=== PATIENT | male | born 1950 | race Caucasian/White ===

== ENCOUNTER 2016-07-01 05:10 | Observation (INO) | payer MEDICARE ==
[~2016-07-01] VITALS: Ht 193 cm; Wt 65.7 kg
[2016-07-01] MEDS ORDERED: TIOT18CA INH (05:23)
[2016-07-01] MEDS ORDERED: OMEP20TA62 PO (05:23)
[2016-07-01] MEDS ORDERED: SODIUM CHLORIDE 0.9% 1,000 ML IV ONE (05:28)
[2016-07-01] MEDS ORDERED: SODIUM CHLORIDE FLUSH 10ML SYR IVF ONE (05:30)
[2016-07-01 06:16] LABS: BLOOD UREA NITROGEN 8 mg/dL (7-18)
[2016-07-01 06:24] LABS: ASPARTATE AMINO TRANSFERASE 13 U/L (15-37)
[2016-07-01 06:25] LABS: IS PT STATUS REG ER OR PRE ER? YES
[2016-07-01] MEDS ORDERED: LORazepam 2 MG/ML, 1ML IVPush ONE (07:00)
[2016-07-01] MEDS ORDERED: NICOTINE 21 MG/24 HR PATCH.TD24 TD ONE (07:00)
[2016-07-01] MEDS ORDERED: ENOXAPARIN 40 MG/0.4 ML ONE (07:55)
[2016-07-01] MEDS ORDERED: NICOTINE 21 MG/24 HR PATCH.TD24 ONE (07:55)
[2016-07-01] MEDS ORDERED: LORazepam 2 MG/ML, 1ML ONE (07:55)
[2016-07-01] MEDS: ENOXAPARIN 40 MG/0.4 ML SQ SCH (07:58)
[2016-07-01] MEDS: NICOTINE 14MG/24 HR PATCH.TD24 TD SCH (07:59)
[2016-07-01] MEDS ORDERED: ONDANSETRON 2MG/ML, 2ML IVP PRN (08:00)
[2016-07-01] MEDS ORDERED: POLYETHYLENE GLYCOL 17 GM PACKET PO PRN (08:00)
[2016-07-01] MEDS ORDERED: ONDANSETRON ODT 4 MG PO PRN (08:00)
[2016-07-01] MEDS ORDERED: GUAIFENESIN/DM 200-20MG, 10ML UDC PO PRN ×2 (08:00)
[2016-07-01] MEDS ORDERED: NITROGLYCERIN 0.4 MG BOTTLE (25 TABS) SL PRN (08:00)
[2016-07-01] MEDS ORDERED: ZOLPIDEM 5MG TABLET PO PRN (08:00)
[2016-07-01] MEDS ORDERED: ALBUTEROL SULFATE 2.5 MG/3 ML NPPB PRN (08:00)
[2016-07-01] MEDS ORDERED: ACETAMINOPHEN 325 MG TABLET PO PRN (08:00)
[2016-07-01] MEDS ORDERED: DOCUSATE 100 MG CAPSULE PO PRN (08:00)
[2016-07-01] MEDS ORDERED: NITROGLYCERIN 0.4 MG/SPRAY SL PRN (08:00)
[2016-07-01] MEDS ORDERED: HYDROcodone/APAP 5/325 TABLET PO PRN (08:00)
[2016-07-01 08:30] LABS: IS PT STATUS REG ER OR PRE ER? YES
[2016-07-01 08:52] VITALS: BP 117/75
[2016-07-01] MEDS: SODIUM CHLORIDE 0.9% 1,000 ML IV SCH ×3 (09:37→22:03)
[2016-07-01 11:41] VITALS: BP 117/75
[2016-07-01 13:40] VITALS: BP_SYST 117; BP_SYST 94; BP_DIAS 52; BP_DIAS 70
[2016-07-01 13:55] LABS: IS PT STATUS REG ER OR PRE ER? NO
[2016-07-01 18:31] VITALS: BP 121/68
[2016-07-01 18:56] VITALS: BP 133/73
[2016-07-02 02:15] VITALS: BP 129/65
[2016-07-02] MEDS: IPRATROPIUM 0.5 MG/2.5 ML INHA HHN SCH ×2 (03:00→08:00)
[2016-07-02] MEDS ORDERED: ASPIRIN 325 MG TABLET EC PO SCH (06:00)
[2016-07-02 06:38] LABS: BLOOD UREA NITROGEN 11 mg/dL (7-18)
[2016-07-02 07:34] VITALS: BP 125/78
[2016-07-02] MEDS ORDERED: REGADENOSON 0.4 MG/5 ML SYRINGE ONE (09:11)
[2016-07-02] MEDS: NICOTINE 14MG/24 HR PATCH.TD24 TD SCH (10:44)
[2016-07-02] MEDS: ENOXAPARIN 40 MG/0.4 ML SQ SCH (10:44)
[2016-07-02] MEDS ORDERED: ALBUTEROL/IPRATROPIUM 2.5MG/0.5MG, 3 ML NPPB PRN (11:30)
[2016-07-02] MEDS ORDERED: ASPI-650 PO (13:40)
[2016-07-02] MEDS ORDERED: NICO1PAT4 TD (13:40)
[2016-07-02 13:59] VITALS: BP 107/62
== END 2016-07-02 16:52 | disposition home or self-care (01) ==
LOC: ED 06:48 → UNDOADMOB 06:49 → INTOOBSV 06:49 → EDIP 06:49 → ED 07:13 → EDIP 07:34 → 4WST 08:39 → 5SO 18:41
PROVIDERS: ADMIT Internal Medicine; ATTEND Internal Medicine
DX: R07.9 Chest pain, unspecified (principal); F17.200 Nicotine dependence, unspecified, uncomplicated; J44.9 Chronic obstructive pulmonary disease, unspecified; K21.9 Gastro-esophageal reflux disease without esophagitis
CPT/HCPCS: 36415; 71010; 78452; 80048; 80053; 80061; 83880; 84484; 85025; 85610; 93005; 93017; 96361; 96372; 96374; 99285; A9502; C9898; G0378; J1650; J2060; J2785; J7030; J7644

== ENCOUNTER → 2020-03-02 | Outpatient (CLI) | payer MEDICARE ==
[~2020-03-02] MED LIST: ASPI-650 PO; NICO-486 TD; OMEP20TA62 PO; OMNIPAQUE 350 MG/ML, 100ML BOTTLE ONE; TIOT18CA INH
[2020-03-02 13:43] LABS: CREATININE 0.79 mg/dL (0.7-1.3)
== END | disposition home or self-care (01) ==
LOC: RAD 13:04
PROVIDERS: ATTEND Family Medicine
DX: R22.1 Localized swelling, mass and lump, neck (principal); M50.322 Other cervical disc degeneration at C5-C6 level; I70.0 Atherosclerosis of aorta; J43.9 Emphysema, unspecified
CPT/HCPCS: 36415; 70491; 82565; Q9967

== ENCOUNTER → 2020-05-12 | Outpatient (CLI) | payer MEDICARE ==
[~2020-05-12] MED LIST changes: -ASPI-650 PO; +ASPI325T20 PO; -OMNIPAQUE 350 MG/ML, 100ML BOTTLE ONE
== END | disposition home or self-care (01) ==
LOC: ROC 06:59
PROVIDERS: ATTEND Radiology Radiation Oncology
DX: C10.9 Malignant neoplasm of oropharynx, unspecified (principal); Z79.82 Long term (current) use of aspirin; Z87.891 Personal history of nicotine dependence
CPT/HCPCS: 99214; G0463

== ENCOUNTER → 2020-05-20 | Outpatient (CLI) | payer MEDICARE ==
[~2020-05-20] MED LIST changes: +ALBU90AE INH; +BUDE10.2 PO; +CHOL500045 PO; +FINA5TAB4 PO; +ROFL500T PO; +SILO8CAP6 PO; +ZINC50CA PO
== END | disposition home or self-care (01) ==
LOC: STAR 10:07
PROVIDERS: ATTEND Specialist
DX: Z20.822 Contact with and (suspected) exposure to COVID-19 (principal); C77.9 Secondary and unspecified malignant neoplasm of lymph node, unspecified; J44.9 Chronic obstructive pulmonary disease, unspecified; R49.0 Dysphonia; F17.210 Nicotine dependence, cigarettes, uncomplicated
CPT/HCPCS: U0003

== ENCOUNTER 2020-06-18 07:17 | Outpatient (CLI) | payer MEDICARE | END 2020-06-18 23:59 | disposition home or self-care (01) | LOC: ROC 07:17 | PROVIDERS: ATTEND Radiology Radiation Oncology | DX: C32.1 Malignant neoplasm of supraglottis (principal); C77.0 Secondary and unspecified malignant neoplasm of lymph nodes of head, face and neck; J44.9 Chronic obstructive pulmonary disease, unspecified; Z79.899 Other long term (current) drug therapy; Z79.82 Long term (current) use of aspirin; Z87.891 Personal history of nicotine dependence | CPT/HCPCS: 99213; G0463 ==

== ENCOUNTER → 2020-06-18 | Outpatient (CLI) | payer MEDICARE ==
[~2020-06-18] MED LIST changes: +ACET-1600 PO; +HYDR-3241 PO
[2020-06-18 12:41] LABS: BASOPHILS % (AUTO) 1 % (0-1); EOSINOPHILS % (AUTO) 1 % (1-7); LYMPHOCYTES % (AUTO) 26 % (22-44); MEAN CORPUSCULAR HEMOGLOBIN 31.6 pg (27.5-34.5); MEAN CORPUSCULAR HGB CONC 33.9 g/dL (33.2-36.2); MEAN PLATELET VOLUME 8.8 fL (7.4-10.4); MONOCYTES % (AUTO) 7 % (2-9); NEUTROPHILS % (AUTO) 65 % (42-75); PLATELET COUNT 210 x10^3/uL (130-400); RED BLOOD COUNT 4.92 x10^6/uL (4.38-5.82); RED CELL DISTRIBUTION WIDTH 12.2 % (9.4-14.8)
[2020-06-18 12:42] LABS: MD NO
[2020-06-18 12:47] LABS: ALANINE AMINOTRANSFERASE 21 U/L (12-78); ALBUMIN 3.8 g/dL (3.4-5.0); ANION GAP 3 mmol/L (5-15); CALCIUM 9.3 mg/dL (8.5-10.1); CHLORIDE 106 mmol/L (98-107); CREATININE 0.82 mg/dL (0.7-1.3)
[2020-06-18 13:13] LABS: ALKALINE PHOSPHATASE 72 U/L (45-117); BILIRUBIN,TOTAL 0.6 mg/dL (0.2-1.0)
== END | disposition home or self-care (01) ==
LOC: LAB 12:16
PROVIDERS: ATTEND Internal Medicine
DX: C32.1 Malignant neoplasm of supraglottis (principal); Z79.899 Other long term (current) drug therapy
CPT/HCPCS: 36415; 80053; 82306; 82607; 83735; 84630; 85025; 86705; 86706; 86803; 87340

== ENCOUNTER → 2020-07-05 | Outpatient (CLI) | payer MEDICARE | END | disposition home or self-care (01) | LOC: CFH 09:42 | PROVIDERS: ATTEND Internal Medicine | DX: C32.1 Malignant neoplasm of supraglottis (principal); J43.2 Centrilobular emphysema; J84.10 Pulmonary fibrosis, unspecified | CPT/HCPCS: 71250 ==

== ENCOUNTER → 2020-07-16 | Outpatient (CLI) | payer MEDICARE | END | disposition home or self-care (01) | LOC: CFH 10:34 | PROVIDERS: ATTEND Radiology Radiation Oncology | DX: I82.492 Acute embolism and thrombosis of other specified deep vein of left lower extremity (principal); R22.33 Localized swelling, mass and lump, upper limb, bilateral ==

== ENCOUNTER 2020-09-08 07:53 | Outpatient (CLI) | payer MEDICARE | END 2020-09-08 23:59 | disposition home or self-care (01) | LOC: ROC 07:53 | PROVIDERS: ATTEND Radiology Radiation Oncology | DX: Z08 Encounter for follow-up examination after completed treatment for malignant neoplasm (principal); Z85.21 Personal history of malignant neoplasm of larynx; J44.9 Chronic obstructive pulmonary disease, unspecified; Z79.82 Long term (current) use of aspirin; Z79.899 Other long term (current) drug therapy; Z87.891 Personal history of nicotine dependence | CPT/HCPCS: 99213; G0463 ==

== ENCOUNTER → 2020-10-06 | Outpatient (CLI) | payer MEDICARE ==
[~2020-10-06] MED LIST changes: +OMNIPAQUE 350 MG/ML, 75ML BOTTLE ONE
== END | disposition home or self-care (01) ==
LOC: CFH 10:37
PROVIDERS: ATTEND Radiology Radiation Oncology
DX: C32.1 Malignant neoplasm of supraglottis (principal); J43.9 Emphysema, unspecified
CPT/HCPCS: 71260; Q9967

== ENCOUNTER 2020-10-14 08:59 | Outpatient (CLI) | payer MEDICARE ==
[~2020-10-14 08:59] MED LIST changes: -OMNIPAQUE 350 MG/ML, 75ML BOTTLE ONE
== END 2020-10-14 23:59 | disposition home or self-care (01) ==
LOC: ROC 08:59
PROVIDERS: ATTEND Radiology Radiation Oncology
DX: Z08 Encounter for follow-up examination after completed treatment for malignant neoplasm (principal); Z85.21 Personal history of malignant neoplasm of larynx
CPT/HCPCS: 99213; G0463